=== PATIENT | female | born 1985 | race Two or more races ===

== ENCOUNTER 2021-06-28 11:12 | Emergency (ER) | payer MEDICAID, OTHER ==
[~2021-06-28] VITALS: Ht 165.1 cm; Wt 64.9 kg
[2021-06-28] MEDS ORDERED: ONDANSETRON HCL 4 MG/2 ML VIAL IV ONE (11:30)
[2021-06-28] MEDS ORDERED: SODIUM CHLORIDE 0.9% 1,000 ML IV ONE (11:30)
[2021-06-28 11:58] LABS: Basophils # (auto) 0.1 10 ^3/uL (0-0.2); Eosinophils # (auto) 0.3 10 ^3/uL (0-0.8); Eosinophils % (auto) 4.3 % (0.0-7.0); Hematocrit 42.3 % (36.0-46.0); Hemoglobin 14.1 g/dL (12.2-16.2); Lymphocytes # (auto) 2.2 10 ^3/uL (0.4-5.4); Lymphocytes % (auto) 36.3 % (10.0-50.0); Mean Corpuscular Hemoglobin 31.2 pg (28.0-32.0); Mean Corpuscular Hgb Conc. 33.3 g/dL (32.0-36.0); Mean Corpuscular Volume 93.8 fL (80.0-100.0); Monocytes # (auto) 0.3 10 ^3/uL (0-1.3); Monocytes % (auto) 5.7 % (0.0-12.0); Neutrophils # (auto) 3.2 10 ^3/uL (1.6-8.6); Neutrophils % (auto) 52.7 % (37.0-80.0); Nucleated Red Blood Cells % 0.1 %; Red Blood Cells 4.51 10^6/uL (4.0-5.20); Red Cell Distribution Width 12.5 % (11.8-14.3)
[2021-06-28 12:06] LABS: Urine Bacteria FEW /hpf (None Seen); Urine Blood Negative /uL (Negative); Urine Mucus FEW (None Seen); Urine Specific Gravity 1.019 (1.001-1.035); Urine WBC 1 /hpf (0 - 5)
[2021-06-28 13:15] LABS: Albumin 3.9 g/dL (3.4-5.0); Calcium 8.8 mg/dL (8.5-10.1); Potassium 3.6 mmol/L (3.5-5.1)
[2021-06-28] MEDS ORDERED: ACETAMINOPHEN 325 MG TAB PO ONE (13:15)
[2021-06-28 13:17] LABS: Bilirubin, Total 1.8 mg/dL (0.2-1.0); Total Protein 7.5 g/dL (6.4-8.2)
[2021-06-28 14:10] VITALS: BP 113/79
== END 2021-06-28 14:11 | disposition home or self-care (01) ==
LOC: ER 11:12
DX: K52.9 Noninfective gastroenteritis and colitis, unspecified (principal); Z90.49 Acquired absence of other specified parts of digestive tract
CPT/HCPCS: 36415; 74176; 80053; 81001; 81025; 83690; 85025; 96361; 96374; 99284; J2405; J7030

== ENCOUNTER 2022-04-08 10:53 | Emergency (ER) | payer MEDICAID ==
[2022-04-08 12:21] LABS: Basophils # (auto) 0 10 ^3/uL (0-0.2); Basophils % (auto) 0.8 % (0.0-2.0); Eosinophils # (auto) 0.2 10 ^3/uL (0-0.8); Eosinophils % (auto) 3.2 % (0.0-7.0); Hematocrit 42.1 % (36.0-46.0); Hemoglobin 13.5 g/dL (12.2-16.2); Lymphocytes # (auto) 1.8 10 ^3/uL (0.4-5.4); Lymphocytes % (auto) 29.9 % (10.0-50.0); Mean Corpuscular Hemoglobin 30.8 pg (28.0-32.0); Mean Corpuscular Hgb Conc. 32.2 g/dL (32.0-36.0); Mean Corpuscular Volume 95.8 fL (80.0-100.0); Monocytes # (auto) 0.3 10 ^3/uL (0-1.3); Monocytes % (auto) 5.5 % (0.0-12.0); Neutrophils # (auto) 3.6 10 ^3/uL (1.6-8.6); Neutrophils % (auto) 60.6 % (37.0-80.0); Red Cell Distribution Width 12.6 % (11.8-14.3); White Blood Cell 5.9 10^3/uL (4.4-10.8)
[2022-04-08 12:33] LABS: Albumin 3.6 g/dL (3.4-5.0); BUN/Creatinine Ratio 11.5; Calcium 8.8 mg/dL (8.5-10.1)
[2022-04-08 12:43] LABS: Bilirubin, Total 0.7 mg/dL (0.2-1.0)
[2022-04-08 13:59] VITALS: BP 116/76
[2022-04-08 14:23] LABS: Urine Bacteria FEW /hpf (None Seen); Urine Blood Negative /uL (Negative); Urine Mucus FEW (None Seen); Urine Specific Gravity 1.022 (1.001-1.035); Urine WBC 8 /hpf (0 - 5)
== END 2022-04-08 14:24 | disposition home or self-care (01) ==
LOC: ER 10:53
DX: R53.1 Weakness (principal); R10.9 Unspecified abdominal pain; Z90.49 Acquired absence of other specified parts of digestive tract; Z20.822 Contact with and (suspected) exposure to COVID-19
CPT/HCPCS: 36415; 70450; 74176; 80053; 81001; 85025

== ENCOUNTER 2022-06-16 15:06 | Emergency (ER) | payer MEDICAID ==
[~2022-06-16] VITALS: Ht 162.6 cm; Wt 64.0 kg
[2022-06-16 15:30] LABS: Basophils # (auto) 0.1 10 ^3/uL (0-0.2); Basophils % (auto) 0.9 % (0.0-2.0); Eosinophils # (auto) 0.2 10 ^3/uL (0-0.8); Eosinophils % (auto) 2.5 % (0.0-7.0); Hematocrit 42.6 % (36.0-46.0); Hemoglobin 13.9 g/dL (12.2-16.2); Lymphocytes # (auto) 1.8 10 ^3/uL (0.4-5.4); Lymphocytes % (auto) 19.4 % (10.0-50.0); Mean Corpuscular Hemoglobin 31.3 pg (28.0-32.0); Mean Corpuscular Hgb Conc. 32.7 g/dL (32.0-36.0); Mean Corpuscular Volume 95.5 fL (80.0-100.0); Monocytes # (auto) 0.5 10 ^3/uL (0-1.3); Monocytes % (auto) 5.2 % (0.0-12.0); Neutrophils # (auto) 6.6 10 ^3/uL (1.6-8.6); Red Blood Cells 4.46 10^6/uL (4.0-5.20); Red Cell Distribution Width 12.9 % (11.8-14.3); White Blood Cell 9.1 10^3/uL (4.4-10.8)
[2022-06-16 15:50] LABS: BUN/Creatinine Ratio 9.2; Bilirubin, Total 0.8 mg/dL (0.2-1.0); Calcium 8.6 mg/dL (8.5-10.1); Magnesium 2.2 mg/dL (1.6-2.6); Total Protein 7.4 g/dL (6.4-8.2)
[2022-06-16] MEDS ORDERED: HYDROcodone-ACET 5/325MG TAB PO ONE (17:00)
[2022-06-16] MEDS ORDERED: GABAPENTIN 300 MG CAP PO ONE (17:00)
[2022-06-16] MEDS ORDERED: KETOROLAC TROMETH 30 MG/ML 1ML VIAL IM ONE (17:00)
[2022-06-16 17:57] LABS: Urine Bacteria FEW /hpf (None Seen); Urine Blood Negative /uL (Negative); Urine Specific Gravity 1.008 (1.001-1.035); Urine WBC <1 /hpf (0 - 5)
[2022-06-16 18:21] VITALS: BP 126/81
== END 2022-06-16 19:08 | disposition home or self-care (01) ==
LOC: ER 15:06
DX: M54.59 Other low back pain (principal); R10.2 Pelvic and perineal pain; Z90.49 Acquired absence of other specified parts of digestive tract
CPT/HCPCS: 36415; 80053; 81001; 81025; 83735; 84702; 85025; 93005; 96372; 99284; J1885

== ENCOUNTER 2023-09-23 10:33 | Emergency (ER) | payer SELFPAY ==
[~2023-09-23] VITALS: Ht 162.6 cm; Wt 62.7 kg
[2023-09-23 11:34] LABS: Urine Bacteria NONE SEEN /hpf (None Seen); Urine Blood 1+ /uL (Negative); Urine Clarity HAZY (Clear); Urine Color Yellow (Yellow); Urine Hyaline Cast MANY /lpf (0 - 2); Urine Mucus FEW (None Seen); Urine Protein, UAD 1+ (Negative); Urine Specific Gravity 1.027 (1.001-1.035); Urine WBC 11 /hpf (0 - 5)
[2023-09-23] MEDS ORDERED: NITR-87 PO (12:58)
[2023-09-23] MEDS ORDERED: MELO-335 PO (12:58)
[2023-09-23] MEDS ORDERED: METH-1181 PO (12:58)
[2023-09-23] MEDS ORDERED: KETOROLAC TROMETH 30 MG/ML 1ML VIAL IM ONE (13:00)
[2023-09-23 13:03] VITALS: BP 111/77; PULSE 104; RESP 18; TEMP 98.3; O2SAT 98
== END 2023-09-23 13:38 | disposition home or self-care (01) ==
LOC: ER 10:33
DX: N30.90 Cystitis, unspecified without hematuria (principal); M54.6 Pain in thoracic spine; Z98.890 Other specified postprocedural states; Z79.899 Other long term (current) drug therapy
CPT/HCPCS: 81001; 81025; 96372; 99283; J1885

== ENCOUNTER 2024-12-10 12:56 | Emergency (ER) | payer MEDICAID ==
[~2024-12-10] VITALS: Ht 162.6 cm; Wt 61.9 kg
[~2024-12-10 12:56] MED LIST: MELO15TA29 PO; METH-1181 PO; NITR-87 PO
--- NOTE | 2024-12-10 13:13 | ED.PDOC ---
General HPI Comments 39 year old female presents to the ED with chief complaint of hematuria. Patient reports that she has been experiencing hematuria with associated weakness since after her endoscopy/colonoscopy was performed on 12/08/24. Patient relays that during her procedure, she had been found to have H. Pylori and she had a polyp taken out of her colon. Patient states she has not passed a bowel movement since the procedure, but she has been able to pass gas. Patient denies any on her menses, nausea, vomiting, diarrhea, abdominal pain, dizziness, dysuria, or flank pain. Denies any vaginal bleeding. Denies any abdominal pain or diarrhea. Initial Vital Signs: Temp : 98.1F BP: 142/89 HR: 86 RR: 16 SpO2: 98% Past Medical History: H. Pylori Past Surgical History: Cholecystectomy, Colonoscopy and Endoscopy on 12/08/24. Social History: Denies smoking, ETOH, or drug use. Medications: No medications. Allergies: NKDA HPI: Poor Historian. REVIEW OF SYSTEMS: CONSTITUTIONAL: Denies acute: fever, diaphoresis, chills, generalized weakness. HEAD: Denies acute: headache, photophobia Eyes: Denies acute: Double vision, vision loss, eye pain, eye discharge. EARS: Denies acute: tinnitus, hearing loss, ear discharge, ear pain, THROAT: Denies acute: sore throat, swelling, difficulty swallowing , pain with swallowing, change in voice. NECK: Denies acute: neck pain, neck swelling, stiff neck. HEART: Denies acute : chest pain, palpitations, LUNGS: Denies acute: SOB, wheezing, cough, hemoptysis ABDOMEN: Denies acute: abdominal pain, Nausea, Vomiting, diarrhea, melena , hematemesis, hematochezia SKIN: Denies acute: rash, redness, lesions, itchiness. EXTREMITIES: Denies acute: calf pain, numbness, tingling, weakness, denies pain in extremity. Denies acute: Low back pain. Neuro: Denies acute: focal neurological deficit, motor or sensory focal neurological deficit, tremors, seizure like activity, confusion, dizziness, change in mental status, loss of bowel or bladder function, cauda equina like symptoms. : Denies acute: dysuria, flank pain, increase in urinary frequency. PSYCH: Denies acute: hallucination, suicidal ideation, homicidal ideation. FEMALE: Denies acute: abnormal vaginal bleeding, foul odor, unusual discharge. PHYSICAL EXAM: General: no acute distress, awake and alert. Head: normocephalic, atraumatic. Neck: supple, trachea is midline, no swelling. Throat: Normal phonation. Eyes:, no erythema, no purulent discharge, no proptosis, no icterus. Heart: regular rate, regular rhythm, no significant murmur appreciated. Lungs: no apparent respiratory distress, Able to speak in full sentences. No wheezing, no rhonchi, no crackles. No stridors Clear to auscultation bilaterally. Abdomen: non tender to palpation, non distended, soft, no guarding, no rebound, + bowel sounds. Neuro: Awake, Alert, oriented to name, self, situation, follows commands GCS=15. Speech is normal. Skin: no petechia, no purpura, no cyanosis, non-pale, not jaundice. Lower extremities: --no - Pitting edema no deformity, no focal swelling, no calf TTP. Makes eye contact. moves all four extremities. Face: no apparent facial droop. Ambulating in the ED independently. ED COURSE: Time Seen by MD: 13:07 Primary Care Provider: MAYA Reviewed notes: Nurses Notes, Medications, Allergies Allergies: Coded Allergies: NO KNOWN ALLERGIES (Unverified , 06/28/21) Home Meds Active Scripts Nitrofurantoin Monohydrate Mac (Macrobid) 100 Mg Cap, 100 MG PO BID for 7 Days, #14 CAP Prov:SESAR MONTEIRO DO 12/10/24 Methocarbamol (Methocarbamol) 500 Mg Tab, 500 MG PO QIDP for 14 Days, #56 TAB 0 Refills Prov:DON HOUGH ENVIRONMENTAL CONSULTANT 09/23/23 Meloxicam (Meloxicam) 15 Mg Tab, 15 MG PO DAILY for 30 Days, #30 TAB 0 Refills Prov:ODN HOUGH ENVIRONMENTAL CONSULTANT 09/23/23 Nitrofurantoin Monohydrate Mac (Macrobid) 100 Mg Cap, 100 MG PO BID for 5 Days, #10 CAP 0 Refills Prov:DON HOUGH ENVIRONMENTAL CONSULTANT 09/23/23 Information Source: Patient Mode of Arrival: Ambulatory Was a procedure done? Was a procedure done?: No Differential Diagnosis Kidney stone (Female): N/A Urinary Problem (Female): Other (Hematuria:Ddx includes but not limited to: stones, coagulopathy, bladder/kidney cancer, SLE, infection, pylonephritis, prostatitis, cystitis, urethritis, renal infarct, Goodpasture syndrome, Wegners granulomatosis, Henoch-schnolin purpura, Hemolytic Uremic Syndrome HUS. Rhabdomyolysis. ) X-Ray, Labs, Meds, VS Vital Signs Date Time Temp Pulse Resp B/P (MAP) Pulse Ox O2 Delivery O2 Flow Rate FiO2 12/10/24 15:27 98.3 64 18 117/78 (91) 99 98.3 12/10/24 13:46 77 19 97 Room Air* 0 21 12/10/24 13:41 98.6 77 19 123/74 (90) 97 98.6 12/10/24 13:41 77 17 97 Room Air 12/10/24 13:07 98.1 86 16 142/89 (106) 98 98.1 Lab Test 12/10/24 13:19 12/10/24 13:18 Range/Units White Blood Count 6.1 4.4-10.8 10^3/uL Red Blood Count 4.27 4.0-5.20 10^6/uL Hemoglobin 13.8 12.2-16.2 g/dL Hematocrit 40.5 36.0-46.0 % Mean Corpuscular Volume 94.9 80.0-100.0 fL Mean Corpuscular Hemoglobin 32.3 H 28.0-32.0 pg Mean Corpuscular Hemoglobin Concent 34.1 32.0-36.0 g/dL Red Cell Distribution Width 12.6 11.8-14.3 % Platelet Count 223 140-450 10^3/uL Mean Platelet Volume 10.1 6.9-10.8 fL Neutrophils (%) (Auto) 58.7 37.0-80.0 % Lymphocytes (%) (Auto) 31.9 10.0-50.0 % Monocytes (%) (Auto) 6.8 0.0-12.0 % Eosinophils (%) (Auto) 1.9 0.0-7.0 % Basophils (%) (Auto) 0.7 0.0-2.0 % Neutrophils # (Auto) 3.6 1.6-8.6 10 ^3/uL Lymphocytes # (Auto) 2.0 0.4-5.4 10 ^3/uL Monocytes # (Auto) 0.4 0-1.3 10 ^3/uL Eosinophils # (Auto) 0.1 0-0.8 10 ^3/uL Basophils # (Auto) 0 0-0.2 10 ^3/uL Nucleated Red Blood Cells 0.0 % Sodium Level 142 136-145 mmol/L Potassium Level 3.5 3.5-5.1 mmol/L Chloride Level 108 H 98-107 mmol/L Carbon Dioxide Level 26 20-31 mmol/L Anion Gap 8 5-15 Blood Urea Nitrogen 9 9-23 mg/dL Creatinine 0.75 0.550-1.02 mg/dL Glomerular Filtration Rate Calc 104 >90 mL/min BUN/Creatinine Ratio 12.0 10.0-20.0 Serum Glucose 83 74-106 mg/dL Lactic Acid Level 1.1 0.4-2.0 mmol/L Calcium Level 10.0 8.7-10.4 mg/dL Total Bilirubin 1.3 H 0.2-1.0 mg/dL Aspartate Amino Transferase (AST) 22 13-40 U/L Alanine Aminotransferase (ALT) 50 H 7-40 U/L Alkaline Phosphatase 96 46-116 U/L Troponin I High Sensitivity < 3 L </=34 ng/L Total Protein 7.3 5.7-8.2 g/dL Albumin 4.8 3.2-4.8 g/dL Lipase 32 12-53 U/L Urine Color Colorless Yellow Urine Clarity Turbid H Clear Urine pH 5.5 5.0-9.0 Urine Specific [place] 1.007 1.001-1.035 Urine Protein Negative Negative Urine Ketones Negative Negative Urine Blood 3+ H Negative /uL Urine Nitrite Negative Negative Urine Bilirubin Negative Negative Urine Urobilinogen Normal Negative mg/dL Urine Leukocyte Esterase Negative Negative /uL Urine RBC 1 0 - 4 /hpf Urine Microscopic WBC 2 0-5 /HPF Urine Squamous Epithelial Cells Mod <5 /hpf Urine Bacteria Few H None Seen /hpf Urine Mucus Few None Seen Urine Glucose Normal Normal mg/dL Urine Test Negative Negative [facility] [id number] [facility] [id number] Ph: [phone] DIAGNOSTIC IMAGING Diagnostic Imaging Report : [id number] Signed PATIENT: NEGIN MARTINEZ ACCT: [id number] UNIT: [id number] : 1985 LOC: ER ROOM / BED: / AGE / SEX: 39 / F ADM STATUS: REG ER SERVICE 1306 ORDERING PHYSICIAN: SESAR MONTEIRO DO PROCEDURE(s): ABPLIV - CT AB PEL WITH IV CON ONLY REASON: hematuria ORDER NUMBER(s): [id number], ACCESSION NUMBER(s): [id number] Exam: CT CT AB PEL WITH IV CON ONLY History: hematuria Comparison Study: None available at time of dictation. Contrast: Type of contrast: Omnipaque 300 Contrast injected: 85 mL Contrast wasted: 0 TECHNIQUE: A digital deputy juvenile officer image was obtained. During the uneventful, intravenous administration of contrast material, multislice data acquisition was obtained through the abdomen and pelvis. The data set was subsequently reconstructed into axial images. Images were reviewed on a work station using a combination of axial and multiplanar using a variety of window levels and settings. Radiation Dose Information: CT Dose: CTDI volume is 7.32 mGy. Dose-length product is 382.53 mGy*cm FINDINGS: Lung Bases: No acute or significant lung base finding. Normal heart size. No p leural or pericardial effusion. Liver: The liver is normal in size. No focal lesions. Normal hepatic vascular enhancement. Gallbladder and Biliary Tree: Gallbladder has been surgically removed Spleen: Unremarkable Pancreas: The pancreas is normal in appearance without focal lesions or abnormal enhancement. Adrenal Glands: Unremarkable Kidneys: Kidneys demonstrate normal symmetric enhancement without focal lesions, calculi or hydronephrosis. Bladder: Unremarkable Bowel: The stomach is grossly normal in appearance. Small bowel and colon are normal in caliber and distribution. The appendix is not visualized; however, no secondary findings of acute appendicitis identified. Ascites: Absent Lymphadenopathy: No mesenteric, retroperitoneal or periportal lymphadenopathy. Abdominal Wall and Mesentery: Unremarkable. Vasculature: The visualized abdominal aorta is normal in size and caliber. Abdominal and pelvic vessels demonstrate normal enhancement. Pelvic Organs: Unremarkable Musculoskeletal: No aggressive focal bony lesions, acute fractures or dislocation. Soft tissues: Unremarkable. IMPRESSION: 1. No nephrolithiasis or hydronephrosis 2. No bladder calculi. 3. 4. All CT scans at this medical facility are performed using dose modulation techniques as appropriate to a performed exam including the following: Automated exposure control was utilized; adjustment of the MA and/or KV according to patient size; and use of iterative reconstruction technique. ATED BY: KEERTHI PENDLETON Jr., DO DICTATED DATE/TIME: 12/10/24 143 SIGNED BY: KEERTHI PENDLETON Jr., SIGNED DATE/TIME: 12/10/24 143 CC: Time of 1ST Reevaluation: 14:07 Reevaluation 1ST: Unchanged Time of 2ND Reevaluation: 00:00 Reevaluation 2ND: Improved Patient Education/Counseling: Diagnosis, Treatment Family Education/Counseling: No Family Present Comments Patient presented with the above HPI.---hematuria---workup was initiated. patient was found with the above mentioned diagnosis. the following medications were ordered: please refer to order lists of meds and tests obtained by myself Dr. Monteiro. Patient ED course and VS have been stabilized. Patient has been reassessed in the ED and remained in a stable condition. Pertinent incidental findings were discussed with the patient and/or family. Patient/family voices understanding and is agreeable with plan. Patient has been observed in the ED adequate length of time to insure improvement/stability. Escalation of care considered: Consideration of escalation to observation or admission Patient was DISCHARGED home in a stable condition. All the reports of any imaging studies that were ordered by myself were reviewed by myself. Departure 1 Departure Time of Disposition: 15:04 Impression: Primary Impression: UTI (urinary tract infection) Additional Impression: Hematuria Disposition: 01 HOME / SELF CARE / HOMELESS Condition: Stable Additional Instructions: Additional discharge instructions: You MUST follow-up with your primary care/family doctor in 1 to 2 days. If you are unable to see your primary care/family doctor, please return to our emergency room for re-assessment and re-evaluation in 1 to 2 days. Return to the emergency room here in our facility or to the nearest ER [facility] if your symptoms change or worsen. CONSULTATIONS: you MUST Follow-up for consultation as soon as possible with: -urology and gastroenterology in 1-2 days. Please call for appointment You MUST call the consultants office yourself to make an appointment. You may need to arrange that through your insurance and/or your primary/family doctor. If you are unable to see the [facility] consultant in 1 to 2 days, you must return to our emergency room (or any other ER of your choice) for re-assessment and re-ev aluation. Adequate fluid hydration. Below is a copy of your radiological report for follow up: [place] [address] Ph: [phone] DIAGNOSTIC IMAGING Diagnostic Imaging Report : [id number] Signed PATIENT: NEGIN MARTINEZ ACCT: [id number] UNIT: [id number] : 1985 LOC: ER ROOM / BED: / AGE / SEX: 39 / F ADM STATUS: REG ER SERVICE 1306 ORDERING PHYSICIAN: SESAR MONTEIRO DO PROCEDURE(s): ABPLIV - CT AB PEL WITH IV CON ONLY REASON: hematuria ORDER NUMBER(s): [id number], ACCESSION NUMBER(s): [id number] Exam: CT CT AB PEL WITH IV CON ONLY History: hematuria Comparison Study: None available at time of dictation. Contrast: Type of contrast: Omnipaque 300 Contrast injected: 85 mL Contrast wasted: 0 TECHNIQUE: A digital deputy juvenile officer image was obtained. During the uneventful, intravenous administration of contrast material, multislice data acquisition was obtained through the abdomen and pelvis. The data set was subsequently recon structed into axial images. Images were reviewed on a work station using a combination of axial and multiplanar using a variety of window levels and settings. Radiation Dose Information: CT Dose: CTDI volume is 7.32 mGy. Dose-length product is 382.53 mGy*cm FINDINGS: Lung Bases: No acute or significant lung base finding. Normal heart size. No pleural or pericardial effusion. Liver: The liver is normal in size. No focal lesions. Normal hepatic vascular enhancement. Gallbladder and Biliary Tree: Gallbladder has been surgically removed Spleen: Unremarkable Pancreas: The pancreas is normal in appearance without focal lesions or abnormal enhancement. Adrenal Glands: Unremarkable Kidneys: Kidneys demonstrate normal symmetric enhancement without focal lesions, calculi or hydronephrosis. Bladder: Unremarkable Bowel: The stomach is grossly normal in appearance. Small bowel and colon are normal in caliber and distribution. The appendix is not visualized; however, no secondary findings of acute appendicitis identified. Ascites: Absent Lymphadenopathy: No mesenteric, retroperitoneal or periportal lymphadenopathy. Abdominal Wall and Mesentery: Unremarkable. Vasculature: The visualized abdominal aorta is normal in size and caliber. Abdo vibha and pelvic vessels demonstrate normal enhancement. Pelvic Organs: Unremarkable Musculoskeletal: No aggressive focal bony lesions, acute fractures or dislocation. Soft tissues: Unremarkable. IMPRESSION: 1. No nephrolithiasis or hydronephrosis 2. No bladder calculi. 3. 4. All CT scans at this medical facility are performed using dose modulation techniques as appropriate to a performed exam including the following: Automated exposure control was utilized; adjustment of the MA and/or KV according to patient size; and use of iterative reconstruction technique. ATED BY: KEERTHI PENDLETON Jr., DO DICTATED DATE/TIME: 12/10/24 143 SIGNED BY: KEERTHI PENDLETON Jr., SIGNED DATE/TIME: 12/10/24 143 CC: e-Prescriptions Nitrofurantoin Monohydrate Mac (Macrobid) 100 Mg Cap 100 MG PO BID for 7 Days, #14 CAP Prov: SESAR MONTEIRO DO 12/10/24 Discharged With: Self Critical Care Note Critical Care Time?: No I personally scribed for SESAR MONTEIRO DO ([email or web address]) on 12/10/24 at 13:13. Electronically submitted by Stephen Gamble ([email or web address]). I personally scribed for SESAR MONTEIRO DO ([email or web address]) on 12/10/24 at 14:43. Electronically submitted by Stephen Gambel ([email or web address]). I personally scribed for SESAR MONTEIRO DO ([email or web address]) on 12/10/24 at 15:08. Electronically submitted by Stephen Gamble ([email or web address]). SESAR MONTEIRO DO Dec 10, 2024 13:13
[2024-12-10 13:29] LABS: Urine Bacteria FEW /hpf (None Seen); Urine Blood 3+ /uL (Negative); Urine Clarity Turbid (Clear); Urine Color Colorless (Yellow); Urine Mucus FEW (None Seen); Urine Protein, UAD Negative (Negative); Urine Specific Gravity 1.007 (1.001-1.035); Urine Squamous Epithelial Cell MOD /hpf (<5); Urine Urobilinogen Normal (Negative); Urine WBC 2 /HPF (0-5); Urine pH 5.5 (5.0-9.0)
[2024-12-10] MEDS: SODIUM CHLORIDE 0.9% 1,000 ML IV ONE (13:39)
[2024-12-10 13:41] LABS: Basophils # (auto) 0 10 ^3/uL (0-0.2); Basophils % (auto) 0.7 % (0.0-2.0); Eosinophils # (auto) 0.1 10 ^3/uL (0-0.8); Eosinophils % (auto) 1.9 % (0.0-7.0); Hematocrit 40.5 % (36.0-46.0); Hemoglobin 13.8 g/dL (12.2-16.2); Lymphocytes % (auto) 31.9 % (10.0-50.0); Mean Corpuscular Hemoglobin 32.3 pg (28.0-32.0); Mean Corpuscular Hgb Conc. 34.1 g/dL (32.0-36.0); Mean Corpuscular Volume 94.9 fL (80.0-100.0); Monocytes # (auto) 0.4 10 ^3/uL (0-1.3); Monocytes % (auto) 6.8 % (0.0-12.0); Neutrophils # (auto) 3.6 10 ^3/uL (1.6-8.6); Neutrophils % (auto) 58.7 % (37.0-80.0); Platelet Count (auto) 223 10^3/uL (140-450); Red Blood Cells 4.27 10^6/uL (4.0-5.20); Red Cell Distribution Width 12.6 % (11.8-14.3); White Blood Cell 6.1 10^3/uL (4.4-10.8)
[2024-12-10 13:46] VITALS: PULSE 77; RESP 19; O2SAT 97
[2024-12-10] MEDS: HYDROcodone-ACET 5/325MG TAB PO ONE (13:55)
[2024-12-10 13:56] LABS: Alkaline Phosphatase 96 U/L (46-116); Anion Gap 8 (5-15); Aspartate Aminotransferase 22 U/L (13-40); Blood Urea Nitrogen 9 mg/dL (9-23); Carbon Dioxide 26 mmol/L (20-31); Glucose 83 mg/dL (74-106); Lipase 32 U/L (12-53); Sodium 142 mmol/L (136-145); Total Protein 7.3 g/dL (5.7-8.2)
[2024-12-10 13:59] LABS: Alanine Aminotransferase 50 U/L (7-40); Albumin 4.8 g/dL (3.2-4.8); Bilirubin, Total 1.3 mg/dL (0.2-1.0); Chloride 108 mmol/L (98-107); Potassium 3.5 mmol/L (3.5-5.1)
[2024-12-10] MEDS: IOHEXOL 300 MG/ML 100ML BOTTLE IJ ONE (14:13)
[2024-12-10] MEDS: cefTRIAXone 1GM/50ML D5W 50 ML IV ONE (14:34)
--- NOTE | 2024-12-10 14:36 | DVH ---
Exam: CT CT AB PEL WITH IV CON ONLY History: hematuria Comparison Study: None available at time of dictation. Contrast: Type of contrast: Omnipaque 300 Contrast injected: 85 mL Contrast wasted: 0 TECHNIQUE: A digital ethylbenzene converter operator image was obtained. During the uneventful, intravenous administration of c ontrast material, multislice data acquisition was obtained through the abdomen and pelvis. The data s et was subsequently reconstructed into axial images. Images were reviewed on a work station using a c ombination of axial and multiplanar using a variety of window levels and settings. Radiation Dose Information: CT Dose: CTDI volume is 7.32 mGy. Dose-length product is 382.53 mGy*cm FINDINGS: Lung Bases: No acute or significant lung base finding. Normal heart size. No pleural or pericardial effusion. Liver: The liver is normal in size. No focal lesions. Normal hepatic vascular enhancement. Gallbladder and Biliary Tree: Gallbladder has been surgically removed Spleen: Unremarkable Pancreas: The pancreas is normal in appearance without focal lesions or abnormal enhancement. Adrenal Glands: Unremarkable Kidneys: Kidneys demonstrate normal symmetric enhancement without focal lesions, calculi or hydroneph rosis. Bladder: Unremarkable Bowel: The stomach is grossly normal in appearance. Small bowel and colon are normal in caliber and d istribution. The appendix is not visualized; however, no secondary findings of acute appendicitis jayden ntified. Ascites: Absent Lymphadenopathy: No mesenteric, retroperitoneal or periportal lymphadenopathy. Abdominal Wall and Mesentery: Unremarkable. Vasculature: The visualized abdominal aorta is normal in size and caliber. Abdominal and pelvic vess els demonstrate normal enhancement. Pelvic Organs: Unremarkable Musculoskeletal: No aggressive focal bony lesions, acute fractures or dislocation. Soft tissues: Unremarkable. IMPRESSION: 1. No nephrolithiasis or hydronephrosis 2. No bladder calculi. 3. 4. All CT scans at this medical facility are performed using dose modulation techniques as appropriat e to a performed exam including the following: Automated exposure control was utilized; adjustment of the MA and/or KV according to patient size; and use of iterative reconstruction technique.
[2024-12-10] MEDS ORDERED: NITR-87 PO (15:06)
[2024-12-10 15:27] VITALS: BP 117/78; PULSE 64; RESP 18; TEMP 98.3; O2SAT 99
== END 2024-12-10 15:30 | disposition home or self-care (01) ==
LOC: ER 12:56
DX: N39.0 Urinary tract infection, site not specified (principal); R31.9 Hematuria, unspecified; Z79.1 Long term (current) use of non-steroidal anti-inflammatories (NSAID); Z90.49 Acquired absence of other specified parts of digestive tract; Z79.899 Other long term (current) drug therapy
CPT/HCPCS: 36415; 74177; 80053; 81001; 81025; 83605; 83690; 84484; 85025; 96361; 96365; 99285; J0696; J7030; Q9967

== ENCOUNTER 2025-01-27 14:53 | Inpatient (IN) | payer MEDICAID ==
[~2025-01-27] VITALS: Ht 160 cm; Wt 65.0 kg
[2025-01-27] MEDS: ONDANSETRON HCL 4 MG/2 ML VIAL IV ONE (15:59)
[2025-01-27] MEDS: MORPHINE SULFATE 4 MG/ML SYR/VIAL IV ONE (16:01)
[2025-01-27] MEDS: SODIUM CHLORIDE 0.9% 1,000 ML IV ONE (16:01)
--- NOTE | 2025-01-27 16:03 | ED.PDOC ---
GI ASSESSMENT HPI Comments 39 y/o F, with no prior medical history presents to the ED for CC of abdominal pain. Patient states, that she has been experiencing LLQ abdominal pain onset, [id number]. Patient relays, that she had a endoscopy/colonoscopy at [facility] x1 month ago; all testing came back normal. Patient reports, that symptoms have now worsened with new nausea and hematuria [id number]. Patient denies , fever, chills, back pain, or vomiting. No other symptoms or modifying factors present at this time. Chief Complaint: Abdominal Pain Time Seen by MD: 15:15 Primary Care Provider: BERTA Reviewed Notes: Nurses Notes, Medications, Allergies Allergies: Coded Allergies: NO KNOWN ALLERGIES (Unverified , 06/28/21) Home Meds Active Scripts Nitrofurantoin Monohydrate Mac (Macrobid) 100 Mg Cap, 100 MG PO BID for 7 Days, #14 CAP Prov:SESAR MONTEIRO DO 12/10/24 Methocarbamol (Methocarbamol) 500 Mg Tab, 500 MG PO QIDP for 14 Days, #56 TAB 0 Refills Prov:DON HOUGH PARKS WORKER 09/23/23 Meloxicam (Meloxicam) 15 Mg Tab, 15 MG PO DAILY for 30 Days, #30 TAB 0 Refills Prov:DON HOUGH PARKS WORKER 09/23/23 Nitrofurantoin Monohydrate Mac (Macrobid) 100 Mg Cap, 100 MG PO BID for 5 Days, #10 CAP 0 Refills Prov:DON HOUGH PARKS WORKER 09/23/23 Information Source: Patient Mode of Arrival: Ambulatory Timing: Months Duration: Since onset Prehospital treatment: None Quality: None Vomitus: None Stool: Normal Severity: Moderate Recent: None Recent Hx of: None Pain Location: LLQ Modifying Factors: Nothing Associated sign and symptoms: Nausea Past Medical History PAST MEDICAL HISTORY: Denies Surgical History: Cholecystectomy, Denies all surgeries W[employer]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 OIL PUMP OPERATOR HELPER History Family History Family History: Reviewed,noncontributory to illness, No family hx of Cancer, No family hx of DM, No family hx of Heart michael Social History Smoker: Non-Smoker Alcohol: Denies ETOH Use Drugs: Denies Drug Use Lives In: Home Constitutional: denies: chills, diaphoresis, fatigue, fever, malaise, sweats, weakness, others EENTM: denies: blurred vision, double vision, ear bleeding, ear discharge, ear drainage, ear pain, ear ringing, eye pain, eye redness, hearing loss, mouth pain, mouth swelling, nasal discharge, nose bleeding, nose congestion, nose pain, photophobia, tearing, throat pain, throat swelling, voice changes, others Respiratory: denies: cough, hemoptysis, orthopnea, SOB at rest, shortness of breath, SOB with excertion, stridor, wheezing, others Cardiovascular: denies: chest pain, dizzy spells, diaphoresis, Dyspnea on exertion, edema, irregular heart beat, left arm pain, lightheadedness, palpitations, PND, syncope, others Gastrointestinal: reports: abdominal pain, nausea; denies: abdomen distended, blood streaked bowels, constipated, diarrhea, dysphagia, difficulty swallowing, hematemesis, melena, poor appetite, poor fluid intake, rectal bleeding, rectal pain, vomiting, others Genitourinary: reports: hematuria; denies: abnormal vagina bleeding, burning, dyspareunia, dysuria, flank pain, frequency, incontinence, pain, , vagina discharge, urgency, others Neurological: denies: dizziness, fainting, headache, left sided numbness, left sided weakness, numbness, paresthesia, pre-existing deficit, right sided numbness, right sided weakness, seizure, speech problems, tingling, tremors, weakness, others Musculoskeletal: denies: back pain, gout, joint pain, joint swelling, muscle pain, muscle stiffness, neck pain, others Integumetry: denies: bruises, change in color, change in hair/nails, dryness, laceration, lesions, lumps, rash, wounds, others Allergic/Immunocompromised: denies: Difficulty Healing, Frequent Infections, Hives, Itching, others Hematologic/Lymphatic: denies: anemia, blood clots, easy bleeding, easy bruising, swollen glands, others Endocrine: denies: excessive hunger, excessive sweating, excessive thirst, excessive urination, flushing, intolerance to cold, intolerance to heat, un explained weight gain, unexplained weight loss, others Psychiatric: denies: anxiety, bipolar disorder, depression, hopeless, panic disorder, schizophrenia, sleepless, suicidal, others All Other Systems: Reviewed and Negative Physical Exam General Appearance: No Apparent Distress, Normal HEENT: Normal ENT Inspection, Pharynx Normal, TMs Normal Neck: Full Range of Motion, Non-Tender, Normal, Normal Inspection Respiratory: Chest Non-Tender, Lungs Clear, No Accessory Muscle Use, No Respiratory Distress, Normal Breath Sounds Cardiovascular: No Edema, No JVD, No Murmur, No Gallop, Normal Peripheral Pu lses, Regular Rate/Rhythm Breast Exam: Deferred Gastrointestinal: No Organomegaly, No Pulsatile Mass, Normal Bowel Sounds, Tenderness (LLQ) Genitalia: Deferred Pelvic: Deferred Rectal: Deferred Extremities: No calf tenderness, Normal capillary refill, Normal inspection, Normal range of motion, Non-tender, No pedal edema Musculoskeletal : Apperance: Normal Neurologic: Alert, account development representative II-XII nml as Tested, No Motor Deficits, Normal Affect, Normal Mood, No Sensory Deficits Cerebellar Function: Normal Reflexes: Normal Skin: Dry, Normal Color, Warm Lymphatic: No Adenopathy Was a procedure done? Was a procedure done?: No GI differential Dx Differential Diagnosis: Cholangitis, Cholecystitis, Pancreatitis, UTI, Urolithiasis X-Ray, Labs, Meds, VS Vital Signs Date Time Temp Pulse Resp B/P (MAP) Pulse Ox O2 Delivery O2 Flow Rate FiO2 01/27/25 16:31 80 17 112/76 01/27/25 16:01 71 16 114/76 01/27/25 15:05 98.5 81 16 111/70 (84) 96 98.5 Lab Test 01/27/25 15:55 Range/Units White Blood Count 7.4 4.4-10.8 10^3/uL Red Blood Count 4.39 4.0-5.20 10^6/uL Hemoglobin 13.9 12.2-16.2 g/dL Hematocrit 41.1 36.0-46.0 % Mean Corpuscular Volume 93.6 80.0-100.0 fL Mean Corpuscular Hemoglobin 31.6 28.0-32.0 pg Mean Corpuscular Hemoglobin Concent 33.7 32.0-36.0 g/dL Red Cell Distribution Width 12.8 11.8-14.3 % Platelet Count 201 140-450 10^3/uL Mean Platelet Volume 10.1 6.9-10.8 fL Neutrophils (%) (Auto) 54.0 37.0-80.0 % Lymphocytes (%) (Auto) 35.6 10.0-50.0 % Monocytes (%) (Auto) 6.7 0.0-12.0 % Eosinophils (%) (Auto) 2.9 0.0-7.0 % Basophils (%) (Auto) 0.8 0.0-2.0 % Neutrophils # (Auto) 4.0 1.6-8.6 10 ^3/uL Lymphocytes # (Auto) 2.6 0.4-5.4 10 ^3/uL Monocytes # (Auto) 0.5 0-1.3 10 ^3/uL Eosinophils # (Auto) 0.2 0-0.8 10 ^3/uL Basophils # (Auto) 0.1 0-0.2 10 ^3/uL Nucleated Red Blood Cells 0.1 % Sodium Level 141 136-145 mmol/L Potassium Level 4.0 3.5-5.1 mmol/L Chloride Level 108 H 98-107 mmol/L Carbon Dioxide Level 25 20-31 mmol/L Anion Gap 8 5-15 Blood Urea Nitrogen 10 9-23 mg/dL Creatinine 0.86 0.550-1.02 mg/dL Glomerular Filtration Rate Calc 88 >90 mL/min BUN/Creatinine Ratio 11.6 10.0-20.0 Serum Glucose 99 74-106 mg/dL Calcium Level 9.7 8.7-10.4 mg/dL Current Medications Medications (Trade) Dose Ordered Sig/Trish Route Start Time Stop Time Status Last Admin Sodium Chloride 1,000 ml @ 1,000 mls/hr Q1H ONCE IV 01/27/25 15:45 01/27/25 16:44 DC 01/27/25 16:01 Morphine Sulfate 4 mg ONCE ONCE IV 01/27/25 15:45 01/27/25 15:46 DC 01/27/25 16:01 Ondansetron HCl (Zofran) 4 mg ONCE ONCE IV 01/27/25 15:45 01/27/25 15:46 DC 01/27/25 15:59 Time of 1ST Reevaluation: 15:45 Reevaluation 1ST: Unchanged Patient Education/Counseling: Diagnosis, Treatment Family Education/Counseling: No Family Present Departure 1 Departure Time of Disposition: 16:57 (Patient presented with abdominal pain that was concerning for possible appendicits, gastritis, cholecystitis, colitis, gastroenteritis, sbo, or orther possible surgical emergency. Data: 1. I ordered and reviewed the result of at least 3 labs including a CBC, BMP, and Urinalysis. 2. I independently interpreted the following tests: CT Abdoment and Pelvis is concerning for benign abdomen .Risk:This patient has a high risk of morbidity due to further diagnostic testing or treatment and may suffer from an acute abdominal process disorder. Workup reveals intractable abdominal pain and pat ient should be admitted for further workup. and possible expert consultation. ) Impression: Primary Impression: Intractable abdominal pain Disposition: ADMITTED INPATIENT Admit to: Med Surg Condition: Serious Critical Care Note Critical Care Time?: No Stability Stability form required: No Heart Score Heart Score: Heart Score Response (Comments) Value History N/A 0 EKG N/A 0 Age N/A 0 Risk Factors N/A 0 Troponin N/A 0 Total 0 I personally scribed for JOSE J MACIEL MD ([email or web address]) on 01/27/25 at 16:03. El ectronically submitted by Sonam Sargent ([email or web address]). JOSE J MACIEL MD January 27, 2025 16:03
[2025-01-27 16:05] LABS: Basophils # (auto) 0.1 10 ^3/uL (0-0.2); Basophils % (auto) 0.8 % (0.0-2.0); Eosinophils # (auto) 0.2 10 ^3/uL (0-0.8); Eosinophils % (auto) 2.9 % (0.0-7.0); Hematocrit 41.1 % (36.0-46.0); Hemoglobin 13.9 g/dL (12.2-16.2); Lymphocytes # (auto) 2.6 10 ^3/uL (0.4-5.4); Lymphocytes % (auto) 35.6 % (10.0-50.0); Mean Corpuscular Hemoglobin 31.6 pg (28.0-32.0); Mean Corpuscular Hgb Conc. 33.7 g/dL (32.0-36.0); Mean Corpuscular Volume 93.6 fL (80.0-100.0); Monocytes # (auto) 0.5 10 ^3/uL (0-1.3); Monocytes % (auto) 6.7 % (0.0-12.0); Nucleated Red Blood Cells % 0.1 %; Platelet Count (auto) 201 10^3/uL (140-450); Red Blood Cells 4.39 10^6/uL (4.0-5.20); Red Cell Distribution Width 12.8 % (11.8-14.3); White Blood Cell 7.4 10^3/uL (4.4-10.8)
[2025-01-27 16:12] LABS: Sodium 141 mmol/L (136-145)
[2025-01-27 16:13] LABS: Anion Gap 8 (5-15); Calcium 9.7 mg/dL (8.7-10.4); Carbon Dioxide 25 mmol/L (20-31)
[2025-01-27 16:17] LABS: Chloride 108 mmol/L (98-107)
[2025-01-27 16:18] LABS: BUN/Creatinine Ratio 11.6 (10.0-20.0); Blood Urea Nitrogen 10 mg/dL (9-23); Glucose 99 mg/dL (74-106)
[2025-01-27] MEDS: IOHEXOL 300 MG/ML 100ML BOTTLE IJ ONE (16:46)
[2025-01-27 18:03] LABS: Urine Bacteria FEW /hpf (None Seen); Urine Blood 2+ /uL (Negative); Urine Budding Yeast OCCASIONAL /hpf (None Seen); Urine Clarity Clear (Clear); Urine Color Colorless (Yellow); Urine Protein, UAD Negative (Negative); Urine Specific Gravity 1.003 (1.001-1.035); Urine Squamous Epithelial Cell None Seen /hpf (<5); Urine Urobilinogen Normal (Negative); Urine WBC 1 /HPF (0-5); Urine pH 5.5 (5.0-9.0)
[2025-01-27] MEDS ORDERED: DOCUSATE SOD 100 MG CAP PO PRN (20:45)
[2025-01-27] MEDS ORDERED: MORPHINE SULFATE INJ 2 MG/ml SYRG IV PRN ×2 (20:45→21:15)
[2025-01-27] MEDS ORDERED: ACETAMINOPHEN 325 MG TAB PO PRN (20:45)
--- NOTE | 2025-01-27 21:03 | DVHHP2 ---
History of Present Illness Reason for Visit: Intractable abdominal pain History of Present Illness The patient is a 39-year-old female who denies past medical history presented to [facility] ED with complaint of abdominal pain. Patient reports symptoms progressively get worse with nausea, left lower quadrant abdominal pain, rating 7/10 numeric scale, getting worse that prompted this visit. Patient was seen and evaluated in the ED, laboratory data shows WBC 7.4, platelets 201, sodium 141, potassium 4.0, BUN 10, creatinine 0.86, glucose 99, calcium 9.7. Abdomen/pelvis CT results pending. Please see medication orders section in the computer. On my assessment, patient denies chest pain, no headache, no dizziness, no shortness of breaths, no abdominal pain, nausea or vomiting at this moment, no fever, no chills. Patient was admitted for further evaluation and medical management. Past Medical History Denies past medical history Past Surgical History Cholecystectomy Family History Reviewed, noncontributory to the management of this case. Past Social History The patient lives at home, denies smoking, alcohol or illicit drugs abuse. Review of Systems Constitutional: No: Fever, Chills, Sweats, Weakness, Malaise, Other Eyes: No: Pain, Vision change, Conjunctivae inflammation, Eyelid inflammation, Other, Redness ENT: No: Ear pain, Ear discharge, Nose pain, Nose discharge, Nose congestion, Mouth pain, Mouth swelling, Throat pain, Throat swelling, Other Respiratory: No: Cough, Dry, Shortness of breath, SOB with excertion, Wheezing, Hemoptysis, Pleuritic Pain, Sputum, Wheezing, Other Cardiovascular: No: Chest Pain, Palpitations, Orthopnea, Paroxysmal Noc. Dyspnea, Edema, Lt Headedness, Other Gastrointestinal: Nausea, Abdominal Pain; No: Vomiting, Diarrhea, Constipation, Melena, Hematochezia, Other Genitourinary: No Dysuria, No Frequency, No Incontinence; Hematuria; No Retention, No Other Musculoskeletal: No: other, neck pain, shoulder pain, arm pain, back pain, hand pain, leg pain, foot pain Skin: No: Rash, Lesions, Jaundice, Bruising, Other Neurological: No: Weakness, Numbness, Incoordination, Change in speech, Confusion, Seizures, Other Allergies: Coded Allergies: NO KNOWN ALLERGIES (Unverified , 06/28/21) Medications Current Medications Medications Dose Ordered Sig/Trish Route Start Time Stop Time Status Last Admin Dose Admin Sodium Chloride 10 ml Q8HR IV 01/27/25 22:00 Acetaminophen/ Hydrocodone Bitart 1 tab Q4HP PRN PO 01/27/25 20:45 Ondansetron HCl 4 mg Q4HP PRN IV 01/27/25 20:45 Docusate Sodium 100 mg BIDPRN PRN PO 01/27/25 20:45 Acetaminophen 650 mg Q6HP PRN PO 01/27/25 20:45 Morphine Sulfate 2 mg Q4HPRN PRN IV 01/27/25 20:45 Exam Vital Signs Vital Signs Date Time Temp Pulse Resp B/P (MAP) Pulse Ox O2 Delivery O2 Flow Rate FiO2 01/27/25 16:31 80 17 112/76 01/27/25 16:00 97.9 98 97.9 General Appearance: Alert, Oriented X3, Cooperative, No acute distress HEENT: Atraumatic, PERRLA, EOMI, Mucous membr. moist/pink Respiratory: Clear to auscultation, Normal air movement Cardiovascular: Regular rate, Normal S1, Normal S2, No murmurs Abdominal: Normal bowel sounds, Soft, No hepatospenomegaly, No masses, Other (Reports tenderness) Extremities: No clubbing, No cyanosis, No edema, Normal pulses, No tenderness/swelling Skin: No rashes, No breakdown, No significant lesion Neuro: Normal gait, Normal speech, Strength at 5/5 X4 ext, Normal tone, Sensation intact, Cranial nerves 3-12 NL, Reflexes 2+ Psych/Mental Status: Mental status NL, Mood NL Labs/Xrays Labs Test 01/27/25 16:45 01/27/25 15:55 Range/Units Urine Color Colorless Yellow Urine Clarity Clear Clear Urine pH 5.5 5.0-9.0 Urine Specific [place] 1.003 1.001-1.035 Urine Protein Negative Negative Urine Ketones Negative Negative Urine Blood 2+ H Negative /uL Urine Nitrite Negative Negative Urine Bilirubin Negative Negative Urine Urobilinogen Normal Negative mg/dL Urine Leukocyte Esterase Negative Negative /uL Urine RBC 1 0 - 4 /hpf Urine Microscopic WBC 1 0-5 /HPF Urine Squamous Epithelial Cells None seen <5 /hpf Urine Bacteria Few H None Seen /hpf Urine Yeast (Budding) Occasional None Seen /hpf Urine Glucose Normal Normal mg/dL White Blood Count 7.4 4.4-10.8 10^3/uL Red Blood Count 4.39 4.0-5.20 10^6/uL Hemoglobin 13.9 12.2-16.2 g/dL Hematocrit 41.1 36.0-46.0 % Mean Corpuscular Volume 93.6 80.0-100.0 fL Mean Corpuscular Hemoglobin 31.6 28.0-32.0 pg Mean Corpuscular Hemoglobin Concent 33.7 32.0-36.0 g/dL Red Cell Distribution Width 12.8 11.8-14.3 % Platelet Count 201 140-450 10^3/uL Mean Platelet Volume 10.1 6.9-10.8 fL Neutrophils (%) (Auto) 54.0 37.0-80.0 % Lymphocytes (%) (Auto) 35.6 10.0-50.0 % Monocytes (%) (Auto) 6.7 0.0-12.0 % Eosinophils (%) (Auto) 2.9 0.0-7.0 % Basophils (%) (Auto) 0.8 0.0-2.0 % Neutrophils # (Auto) 4.0 1.6-8.6 10 ^3/uL Lymphocytes # (Auto) 2.6 0.4-5.4 10 ^3/uL Monocytes # (Auto) 0.5 0-1.3 10 ^3/uL Eosinophils # (Auto) 0.2 0-0.8 10 ^3/uL Basophils # (Auto) 0.1 0-0.2 10 ^3/uL Nucleated Red Blood Cells 0.1 % Sodium Level 141 136-145 mmol/L Potassium Level 4.0 3.5-5.1 mmol/L Chloride Level 108 H 98-107 mmol/L Carbon Dioxide Level 25 20-31 mmol/L Anion Gap 8 5-15 Blood Urea Nitrogen 10 9-23 mg/dL Creatinine 0.86 0.550-1.02 mg/dL Glomerular Filtration Rate Calc 88 >90 mL/min BUN/Creatinine Ratio 11.6 10.0-20.0 Serum Glucose 99 74-106 mg/dL Calcium Level 9.7 8.7-10.4 mg/dL Assessment/Plan Assessment/Plan Intractable abdominal pain Generalized weakness Plan 1. Admit to med surge unit 2. Breathing treatment 3. Pain control management 4. Management of fluids and electrolytes 5. Consultation for hospitalist 6. Diagnostic tests abdomen/pelvis CT 7. DVT prophylaxis-on SCDs 8. Repeat labs CBC, CMP in a.m. 9. Continue with current medical management 10. Treatment plan discussed with patient and RN. Patient verbalized understanding. Plan discussed with: Patient, Other (RN) My Orders Orders - FREDO NEAL DNP Procedure Category Date Status Time Allergies JUANCARLOS 01/27/25 In Process 20:39 Code Status CODE 01/27/25 Transmitted 20:39 Sodium Chloride Lock PHA 01/27/25 In Process (Saline Lock Ns) 22:00 Oxygen Per Hour RT 01/27/25 Transmitted 20:39 Hydrocodone-Acet PHA 01/27/25 In Process 5/325mg Tab ([place] 20:45 Ondansetron Hcl PHA 01/27/25 In Process (Zofran) 20:45 Docusate Sodium PHA 01/27/25 In Process Capsule (Colace 20:45 Complete Blood Count LAB 01/28/25 Verified 04:00 Comprehensive LAB 01/28/25 Verified Metabolic Panel 04:00 Condition: Serious JUANCARLOS 01/27/25 In Process 20:39 Acetaminophen Tablet PHA 01/27/25 In Process (Tylenol Tablet) 20:45 Clear Liq Diet DIET 01/28/25 Transmitted Breakfast Bedrest With Bathroom JUANCARLOS 01/27/25 In Process Privileg 20:39 Morphine Sulfate PHA 01/27/25 In Process Injection 20:45 Sequential JUANCARLOS 01/27/25 In Process Compression Device Admit ADMIT 01/27/25 Verified 21:01 Nitroglycerin PHA 01/27/25 Verified Sublingual (Ntrostat 21:15 Morphine Sulfate PHA 01/27/25 Verified Injection 21:15 Notify Md Of Changes JUANCARLOS 01/27/25 Verified From Base 21:01 Batch Unit Treater For JUANCARLOS 01/27/25 Verified 24 Hours 21:01 Emergency Dysrhythmia JUANCARLOS 01/27/25 Verified Protocol 21:01 Oxygen By Nasal RT 01/27/25 Verified Cannula 21:01 Problem List: (1) Intractable abdominal pain (2) Generalized weakness Date of Service: January 27, 2025 Billing Provider: FREDO NEAL DNP Common Visit Codes: [id number] INP/OBS CARE (MOD) FREDO NEAL DNP January 27, 2025 21:03
[2025-01-27] MEDS ORDERED: NITROGLYCERIN 0.4 MG SL TAB SL PRN (21:15)
[2025-01-27] MEDS: SODIUM CHLOR 0.9% PF (SALINE LOCK) 10ML VIAL/SYR IV SCH (22:00)
[2025-01-27] MEDS: ONDANSETRON HCL 4 MG/2 ML VIAL IV PRN (22:42)
[2025-01-27] MEDS: HYDROcodone-ACET 5/325MG TAB PO PRN (22:42)
[2025-01-27 23:30] VITALS: BP 109/68; PULSE 69; RESP 18; TEMP 97.9; O2SAT 98
[2025-01-28] VITALS (9 sets, daily range): BP systolic 99–109; BP diastolic 62–68; PULSE 69–80; RESP 16–18; TEMP 97.8–98.3; O2SAT 93–98
--- NOTE | 2025-01-28 00:14 | DVH ---
Exam: CT CT AB PEL WITH IV CON ONLY History: abdominal pain COMPARISON: CT CT AB PEL WITH IV CON ONLY on DOS: 12/10/24 Technique: Multidetector spiral CT of the abdomen and pelvis was performed from lung bases to pubic s ymphysis. Intravenous contrast was administered during this examination. Portal venous imaging was obtained. Axial, coronal and sagittal multiplanar reformats were performed by the technologist on a separate workstation. Radiation Dose : 1. Abdomen/Pelvis: CTDIvol mGy, DLP mGy*cm. CONTRAST: Type of contrast: Contrast injected: ml Contrast ingested: ml Findings: Lung Bases: No abnormality demonstrated. Liver: Liver is normal in size. No focal lesions noted. Normal hepatic vascular enhancement. Gallbladder and Biliary Tree: Cholecystectomy. No evidence of biliary ductal dilatation. Spleen: No abnormality demonstrated. Pancreas: No abnormality demonstrated. Adrenal Glands: No abnormality demonstrated. Kidneys: No abnormality demonstrated. Bladder: Unremarkable Bowel: Stomach appears grossly unremarkable. No abnormally dilated or thick-walled loops of large or small bowel noted. Appendix appears unremarkable. Ascites: Absent Lymphadenopathy: No evidence of lymphadenopathy. Abdominal Wall and Mesentery: Unremarkable. Vasculature: Unremarkable. Pelvic Organs: Unremarkable Musculoskeletal: No bony lesions or fracture. IMPRESSION: No abnormality demonstrated. Radiation optimization: All CT scans at this facility use at least one of these dose optimization boyd hniques: automated exposure control mA and/or kV adjustment per patient size (includes targeted exam s where dose is matched to clinical indication) or iterative reconstruction.
[2025-01-28 05:42] LABS: Basophils # (auto) 0 10 ^3/uL (0-0.2); Basophils % (auto) 0.6 % (0.0-2.0); Eosinophils # (auto) 0.2 10 ^3/uL (0-0.8); Eosinophils % (auto) 2.1 % (0.0-7.0); Hematocrit 38.9 % (36.0-46.0); Hemoglobin 13.4 g/dL (12.2-16.2); Lymphocytes # (auto) 2.6 10 ^3/uL (0.4-5.4); Lymphocytes % (auto) 35.4 % (10.0-50.0); Mean Corpuscular Hemoglobin 32.1 pg (28.0-32.0); Mean Corpuscular Hgb Conc. 34.5 g/dL (32.0-36.0); Monocytes # (auto) 0.5 10 ^3/uL (0-1.3); Monocytes % (auto) 6.7 % (0.0-12.0); Neutrophils % (auto) 55.2 % (37.0-80.0); Nucleated Red Blood Cells % 0.1 %; Platelet Count (auto) 191 10^3/uL (140-450); Red Blood Cells 4.19 10^6/uL (4.0-5.20); White Blood Cell 7.3 10^3/uL (4.4-10.8)
[2025-01-28 06:04] LABS: Alkaline Phosphatase 89 U/L (46-116); Anion Gap 8 (5-15); Aspartate Aminotransferase 24 U/L (13-40); Carbon Dioxide 26 mmol/L (20-31); Glucose 90 mg/dL (74-106); Potassium 3.8 mmol/L (3.5-5.1); Sodium 142 mmol/L (136-145)
[2025-01-28 06:05] LABS: BUN/Creatinine Ratio 10.7 (10.0-20.0); Total Protein 6.1 g/dL (5.7-8.2)
[2025-01-28 06:15] LABS: Alanine Aminotransferase 59 U/L (7-40); Blood Urea Nitrogen 8 mg/dL (9-23); Chloride 108 mmol/L (98-107)
[2025-01-28 06:16] LABS: Bilirubin, Total 1.4 mg/dL (0.2-1.0); Calcium 8.5 mg/dL (8.7-10.4)
[2025-01-28 09:57] LABS: Hepatitis B Surface Antigen Negative (Negative)
[2025-01-28 10:18] LABS: Hepatitis C Antibody Negative (Negative)
--- NOTE | 2025-01-28 14:09 | DVHPN2 ---
Assessment/Plan Assessment/Plan 39 F admitted for abdominal pain seen today during rounds, pain is constant dull, suprapubic, no tenderness on palpation. also have microscopic hematuria although she reported gross prior.st jimenez fam hx of colon cancer. had egd colonoscopy done prior. phsyical exam aox4 PERRLA MMM no jvd clear breath sounds s1 s2 rrr abdomen soft nontender, no suprapubic pain on palpation no cva tenderness no organomegaly no le edema labs imaging reviewed assessment and plain abdominal pain likely pelvic origin microscopic hematuria no UTI pelvic us pain mgmt Plan discussed with: Patient My Orders Orders - GIBSON CHATMAN MD Procedure Category Date Status Time Creatine Kinase LAB 01/29/25 Verified 04:00 Basic Metabolic Panel LAB 01/29/25 Verified 04:00 Pelvic US 01/28/25 Logged 14:05 Ibuprofen Tablet PHA 01/28/25 Logged (Motrin Tablet) 14:15 Date of Service: January 28, 2025 Billing Provider: GIBSON CHATMAN MD Common Visit Codes: [id number] INP/OBS CARE(MOD) GIBSON CHATMAN MD January 28, 2025 14:09
--- NOTE | 2025-01-28 15:47 | DVH ---
INDICATION: lower ab pain TECHNIQUE: Multiple real-time grayscale transabdominal sonographic images along with color and duplex Doppler of the uterus and ovaries were obtained. COMPARISON: None FINDINGS: The uterus measures 6 x 4 x 4 cm. The endometrial stripe measures 0.6 cm. The right ovary measures 3 x 2 x 2 cm. The left ovary measures 3 x 2 x 2 cm. 2cm left ovarian cyst. Subsequent color and duplex Doppler interrogation of the ovaries demonstrated symmetric vascular flow to both ovaries, though this does not exclude the possibility of torsion due to the dual blood suppl y. 5mm endometrial polyp IMPRESSION: 1. 5mm endometrial polyp
[2025-01-28] MEDS: IBUPROFEN 400 MG TAB PO PRN (17:30)
[2025-01-29 01:00] VITALS: BP 103/68; PULSE 83; RESP 18; TEMP 97.5; O2SAT 98
[2025-01-29 05:00] VITALS: BP 95/66; PULSE 77; RESP 18; TEMP 98; O2SAT 97
[2025-01-29 08:00] VITALS: PULSE 74; RESP 18; O2SAT 98
[2025-01-29 08:10] LABS: Chloride 106 mmol/L (98-107); Potassium 3.8 mmol/L (3.5-5.1); Sodium 141 mmol/L (136-145)
[2025-01-29 08:11] LABS: Anion Gap 10 (5-15); Carbon Dioxide 25 mmol/L (20-31)
[2025-01-29 08:12] LABS: Calcium 9.7 mg/dL (8.7-10.4)
[2025-01-29 08:17] LABS: Blood Urea Nitrogen 12 mg/dL (9-23); Glucose 84 mg/dL (74-106)
[2025-01-29 08:18] LABS: Creatine Kinase IFCC 66 U/L (34-145)
[2025-01-29 08:54] VITALS: BP 106/63; PULSE 74; RESP 18; TEMP 97.9; O2SAT 98
[2025-01-29 13:00] VITALS: BP 110/74; PULSE 79; RESP 16; TEMP 98.1; O2SAT 97
--- NOTE | 2025-01-29 14:39 | DVHDS2 ---
Discharge Summary Date of Admission January 27, 2025 at 21:01 Date of Discharge: January 29, 2025 Labs/Diagnostic Data: Laboratory Results Test 01/29/25 06:57 01/28/25 05:09 01/27/25 16:45 Sodium Level 141 mmol/L (136-145) Potassium Level 3.8 mmol/L (3.5-5.1) Chloride Level 106 mmol/L (98-107) Carbon Dioxide Level 25 mmol/L (20-31) Anion Gap 10 (5-15) Blood Urea Nitrogen 12 mg/dL (9-23) Creatinine 0.80 mg/dL (0.550-1.02) Glomerular Filtration Rate Calc 96 mL/min (>90) BUN/Creatinine Ratio 15.0 (10.0-20.0) Serum Glucose 84 mg/dL (74-106) Calcium Level 9.7 mg/dL (8.7-10.4) Creatine Kinase 66 U/L (34-145) White Blood Count 7.3 10^3/uL (4.4-10.8) Red Blood Count 4.19 10^6/uL (4.0-5.20) Hemoglobin 13.4 g/dL (12.2-16.2) Hematocrit 38.9 % (36.0-46.0) Mean Corpuscular Volume 93.0 fL (80.0-100.0) Mean Corpuscular Hemoglobin 32.1 pg (28.0-32.0) Mean Corpuscular Hemoglobin Concent 34.5 g/dL (32.0-36.0) Red Cell Distribution Width 13.0 % (11.8-14.3) Platelet Count 191 10^3/uL (140-450) Mean Platelet Volume 10.1 fL (6.9-10.8) Neutrophils (%) (Auto) 55.2 % (37.0-80.0) Lymphocytes (%) (Auto) 35.4 % (10.0-50.0) Monocytes (%) (Auto) 6.7 % (0.0-12.0) Eosinophils (%) (Auto) 2.1 % (0.0-7.0) Basophils (%) (Auto) 0.6 % (0.0-2.0) Neutrophils # (Auto) 4.0 10 ^3/uL (1.6-8.6) Lymphocytes # (Auto) 2.6 10 ^3/uL (0.4-5.4) Monocytes # (Auto) 0.5 10 ^3/uL (0-1.3) Eosinophils # (Auto) 0.2 10 ^3/uL (0-0.8) Basophils # (Auto) 0 10 ^3/uL (0-0.2) Nucleated Red Blood Cells 0.1 % Total Bilirubin 1.4 mg/dL (0.2-1.0) Aspartate Amino Transferase (AST) 24 U/L (13-40) Alanine Aminotransferase (ALT) 59 U/L (7-40) Alkaline Phosphatase 89 U/L (46-116) Total Protein 6.1 g/dL (5.7-8.2) Albumin 4.0 g/dL (3.2-4.8) Hepatitis B Surface Antigen Negative (Negative) Hepatitis C Antibody Negative (Negative) Urine Color Colorless (Yellow) Urine Clarity Clear (Clear) Urine pH 5.5 (5.0-9.0) Urine Specific [place] 1.003 (1.001-1.035) Urine Protein Negative (Negative) Urine Ketones Negative (Negative) Urine Blood 2+ /uL (Negative) Urine Nitrite Negative (Negative) Urine Bilirubin Negative (Negative) Urine Urobilinogen Normal mg/dL (Negative) Urine Leukocyte Esterase Negative /uL (Negative) Urine RBC 1 /hpf (0 - 4) Urine Microscopic WBC 1 /HPF (0-5) Urine Squamous Epithelial Cells None seen /hpf (<5) Urine Bacteria Few /hpf (None Seen) Urine Yeast (Budding) Occasional /hpf (None Urine Glucose Normal mg/dL (Normal) Other Laboratory Tests 01/29/25 06:57 01/28/25 05:09 Brief Hx & Hospital Course: 39 yo F admitted for intractible abdominal pain. CTAP with no significant finding, UA bland, pt not sexually active, also have microscopic hematuria although patient stated seeing gross prior to admission. H/H stable. us pelvic with endometrial polyp, might be the cause of lower abd discomfort. patient to follow up with [employer] outpatient. pain managmeent with tylenol and motrin. dc clinic 1 week for UA, if hematuria persists can send for uro eval Condition at Discharge: Good Final Diagnosis/Problems List abdominal pain endometrial polyp microscopic hematuria (however urine with sq cells) Discharge Disposition: Home Discharge Instruct/Medications Follow Up/Referral: [employer] Discharge Statement: "Patient was advised to return to the ER or call 911 if any headaches, dizziness, shortness of breath, chest pain, abdominal pain, bleeding, fevers, or worsening of medical condition. Patient was counseled about treatment plan, medications, possible side effects, patient�verbalized understanding. All questions were answered to the best of my ability. This discharge took greater then 30 minutes in planning, reviewing documentation, counseling the patient, and discussing with other team members." ASSESSMENT ASSESSMENT Assessment Date of Service: January 29, 2025 Billing Provider: GIBSON CHATMAN MD Common Visit Codes: [id number] DISCH DAY >30min GIBSON CHATMAN MD January 29, 2025 14:39
[2025-01-29 15:27] VITALS: BP 110/74; PULSE 79; RESP 16; TEMP 98.1; O2SAT 97
== END 2025-01-29 15:55 | disposition home or self-care (01) | DRG 532 ==
LOC: ER 15:02 → OVERFLOW 21:01 → EAST 21:03
PROVIDERS: ADMIT Student in an Organized Health Care Education/Training Program; ATTEND Student in an Organized Health Care Education/Training Program
DX: N84.0 Polyp of corpus uteri (principal); R31.29 Other microscopic hematuria; Z85.038 Personal history of other malignant neoplasm of large intestine; Z90.49 Acquired absence of other specified parts of digestive tract
CPT/HCPCS: 36415; 74177; 76856; 80048; 80053; 81001; 82550; 85025; 86803; 87340; 96361; 96374; 96375; G0378; J2405